=== PATIENT | male | born 1970 | race Caucasian/White ===

== ENCOUNTER 2024-05-31 06:08 | Day surgery (SDC) | payer BC, SELFPAY ==
[2024-05-27 13:45] VITALS: BMI 21.3
[2024-05-31] VITALS (9 sets, daily range): BP systolic 100–128; BP diastolic 68–89; BMI 21.3
[2024-05-31] MEDS: TYLENOL 1000 MG PO (10:44)
[2024-05-31] MEDS: CELEBREX 200 MG PO (10:44)
[2024-05-31] MEDS: NORMOSOL-R/PLASMALYTE-A 1000 IV (10:52)
--- NOTE | 2024-05-31 11:08 | PTCARENOTE ---
Patient rates high for DVT risk. Dr. Bryant made aware and no further orders for DVT prophylaxis. Will monitor patient.
[2024-05-31] MEDS: SUBLIMAZE 25 MCG IV (15:08)
[2024-05-31] MEDS: SUBLIMAZE 50 MCG IV (15:26)
[2024-05-31] MEDS: ROXICODONE 5 MG PO (16:36)
== END 2024-05-31 17:06 | disposition home or self-care (01) ==
LOC: SDS 06:08
PROVIDERS: ATTENDING PHYSICIAN Specialist; FAMILY PHYSICIAN Family Medicine
PROC: 0RBJ4ZZ Excision of Right Shoulder Joint, Percutaneous Endoscopic Approach (ICD-10-PCS; 2024-05-31)
PROC: 0RNJ4ZZ Release Right Shoulder Joint, Percutaneous Endoscopic Approach (ICD-10-PCS; 2024-05-31)
DX: M75.121 Complete rotator cuff tear or rupture of right shoulder, not specified as traumatic (principal); M75.41 Impingement syndrome of right shoulder
CPT/HCPCS: 29827; 29826; 36415; 93005; C1713

== ENCOUNTER → 2024-10-31 10:24 | Outpatient (REF) | payer BC, SELFPAY | LOC: MRI 3T 10:24 | PROVIDERS: ATTENDING PHYSICIAN Specialist; FAMILY PHYSICIAN Family Medicine | DX: R97.20 Elevated prostate specific antigen [PSA] (principal) | CPT/HCPCS: 72197; A9575 ==